=== PATIENT | female | born 1980 | race Caucasian/White ===

== ENCOUNTER → 2017-06-01 | Outpatient (CLI) | payer OTHER ==
[~2017-06-01] MED LIST: ALLERGY MED OTC; BIRTH CONTROL PILL
--- NOTE | ~2017-06-01 | CR97 ---
[facility] A Service of [facility] & [facility] RADIOLOGY TEXT RESULTS PATIENT: PRABHA PERDOMO LOCATION: [facility] : 84 UNIT #: [id number] AGE: [address]: Sky Brantley MD SEX: F ORDER DR: [id number] [facility] [address] [place], [place] [address] [id number] O MR#: [id number] #: [id number] NAME: PRABHA PERDOMO : 1980 SEX: F STUDY DATE/TIME: 06/01/2017 8:58 UNIT: [facility] ROOM: STUDY DESCRIPTION: CR Esophagram Attending Physician: Sky Brantley M.D. Referring Physician: Sky Brantley M.D. Ordering Physician: Sky Brantley M.D. Primary Care Physician: Scotty Burgess [facility] MEDICAL IMAGING REPORT This report is preliminary unless electronic signature is present EXAM Double contrast barium esophagram INDICATION: Dysphagia and GERD with frequent choking. This has been present for many years but has been getting worse. TECHNIQUE The patient was administered bicarbonate crystals followed by thick and thin barium in and multiple fluoroscopic images were obtained. FINDINGS Despite the administration of the bicarbonate crystals patient had somewhat limited distension of the esophagus. However no stricture or mass lesion was seen. Esophageal mucosa appeared grossly unremarkable. No definite hiatal hernia was seen. No reflux was identified. Patient was noted to have frequent coughing after drinking the barium. I subsequently administered some thin barium and observed her in the lateral projection under fluoroscopy to see if I could see any evidence penetration or aspiration, I do not identify either penetration or aspiration in the lateral projection. IMPRESSION 1. This is a technically limited examination due to limited distension of the esophagus despite the administration of bicarbonate crystals. I do not see any obvious stricture or mass lesion. Mucosa appeared unremarkable. Patient was noted to have frequent coughing after the administration of the barium. Her motility appeared unremarkable and I do not see any evidence of aspiration or penetration. Given her symptoms of coughing a modified barium swallow could be considered to evaluate for any occult aspiration. If symptoms persist esophagoscopy could also be considered for additional evaluation. Total fluoroscopy time was 1.1 minutes and a total of [address]S. [facility] A Service of [facility] RADIOLOGY TEXT RESULTS PATIENT: PRABHA PERDOMO LOCATION: [facility] : 84 UNIT #: [id number] AGE: [address]: Sky Brantley MD SEX: F ORDER DR: images were obtained. Dictated by... Gilma Herzog M.D. THIS IS AN ELECTRONICALLY VERIFIED REPORT Gilma Herzog M.D. at 06/03/2017 4:53 PM OSCAR/andrés TD: 06/02/2017 13:37 JOB #: [id number] MEDICAL IMAGING REPORT Page 1 of 1 COPY
== END | disposition home or self-care (01) ==
LOC: CRAD 08:22
DX: K21.9 Gastro-esophageal reflux disease without esophagitis (principal); R13.19 Other dysphagia; K58.9 Irritable bowel syndrome, unspecified
CPT/HCPCS: 74220